=== PATIENT | female | born 2000 | race Caucasian/White ===

== ENCOUNTER 2023-05-04 11:15 | Emergency (ER) | payer BC, SELFPAY ==
[2023-05-04 11:20] VITALS: BP 124/89; PULSE 86; RESP 14; TEMP 36.4; O2SAT 99; BMI 33.8
--- NOTE | 2023-05-04 11:46 | EX.ED.DYSGE1 ---
HPI History of Present Illness Chief Complaint: Flank Pain Informant: patient Onset/Context/Timing Onset: Yesterday Narrative Narrative: Patient presents secondary to intermittent right flank pain with nausea and vomiting since last evening. She had lithotripsy for kidney stones on April 29. She states she took her stent out last night which she was told to do. She had intermittent pain to the right flank with nausea and vomiting since that time. She states that she took her antibiotic, ibuprofen, and Percocet at 8:00 this morning and currently does not have any pain. She had called Dr. Song this morning who was worried the patient may need the stent replaced and asked her to come in for evaluation. [facility] Medical History Kidney stone Home Medications ibuprofen 800 mg tablet (IBU) 800 mg PO Q8H 05/04/23 [History Last Taken Unknown] oxycodone-acetaminophen 5 mg-325 mg tablet (Percocet) 1 tab PO Q6H 05/04/23 [History Last Taken 05/04/23] oxycodone-acetaminophen 5 mg-325 mg tablet (Percocet) 1 tab PO Q8H PRN pain 3 days #10 tabs 05/04/23 [Rx Last Taken Unknown] phenazopyridine 95 mg tablet 95 mg PO TID PRN urinary 05/04/23 [History Last Taken Unknown] sulfamethoxazole 800 mg-trimethoprim 160 mg tablet (Bactrim DS) 1 tab PO BID #10 tabs 05/04/23 [Rx Last Taken Unknown] Allergy/AdvReac Type Severity Reaction Status Date / Time amoxicillin [From Augmentin] Allergy Mild Nausea Verified 05/04/23 11:17 clavulanic acid Allergy Mild Nausea Verified 05/04/23 11:17 [From Augmentin] Surgical History Hx of tonsillectomy Social History Smoking Status: Never smoker ROS ROS ED Constitutional Constitutional ED: Denies chills or fever(s) Eyes Eyes: Denies change in vision or discharge from eye(s) ENT ENT ED: Denies discharge from eye(s), rhinorrhea or sore throat Cardiovascular Cardiovascular: Denies chest pain or palpitations Respiratory/Chest Respiratory/Chest: Denies cough or dyspnea Gastrointestinal Gastrointestinal: Reports abdominal pain, nausea and vomiting; Denies diarrhea Genitourinary Genitourinary ED: Denies dysuria Musculoskeletal Musculoskeletal: Reports back pain; Denies extremity pain Integumentary Denies Abrasions or rash Neurologic Neurologic: Denies headache(s) or weakness Psychiatric Psychiatric: Denies anxiety or depression Allergic/Immunologic Allergic/Immunologic ED: Denies lip swelling or urticaria EXAM Physical Exam Const Vital Signs: 05/04/23 11:20 Temperature 97.6 F L Temperature Source Temporal Pulse Rate 86 Respiratory Rate 14 Blood Pressure 124/89 H Blood Pressure Mean 100 Pulse Ox 99 Oxygen Delivery Method Room Air Positive well nourished and well developed General Appearance ED: well developed HEENT Reports moist mucous membranes Eyes PERRL and EOMs intact bilaterally Chest Wall inspection of chest normal and palpation of chest normal Resp normal respiratory effort and clear to auscultation bilaterally Cardio regular rate and regular rhythm GI non-tender Auscultation: normoactive bowel sounds Palpation: soft Extremity normal to inspection Neuro oriented x3 and no sensory deficits noted Motor Exam: strength 5/5 throughout Psych mental status grossly normal Skin no rashes or lesions noted MDM MDM MDM Narrative Medical decision making narrative: Patient is not having pain at this time and has not given anything. BMP obtained to evaluate renal function. Urinalysis obtained to look for infection. KUB obtained to evaluate for any significant hydronephrosis. Lab Data Attestation: I reviewed the patient's lab results. Labs: Laboratory Results - last 24 hr 05/04/23 05/04/23 11:43 12:03 Sodium 138 Potassium 3.9 Chloride 107 Carbon Dioxide 26.0 Anion Gap 5 BUN 10 Creatinine 0.78 Estim Creat Clear Calc 89.48 Est GFR (MDRD) Af Amer 117 Est GFR (MDRD) Non-Af 97 BUN/Creatinine Ratio 12.7 Glucose 94 Calcium 8.9 Urine Color Yellow Urine Clarity Sl. Cloudy Urine pH 7.0 Ur Specific [place] 1.005 Urine Protein 15 H Urine Glucose (UA) Normal Urine Ketones Negative Urine Occult Blood 150 H Urine Nitrite Positive H Urine Bilirubin 1 H Urine Urobilinogen 1 H Ur Leukocyte Esterase 100 H Urine RBC 10-25 SEEN Urine WBC 10-25 SEEN Ur Squamous Epith Cells 0-5 SEEN Urine Bacteria 1+ Urine Mucus 0 SEEN Radiography Diagnostic Testing: Clinical Impression(s) from Imaging Studies KUB X-Ray 05/04/23 12:00 IMPRESSION: Large amount of fecal material is seen in the colon. Electronically Signed: Richard Raymond MD at 12:29 EDT , Treatment and Re-Evaluation :: Chemistry studies reveal normal renal function with a creatinine of 0.78. Urinalysis does reveal positive nitrites with 10-25 white cells and 1+ bacteria. KUB per my interpretation reveals increased stool burden with no bowel obstruction. No obvious significant hydronephrosis is noted. Radiology interpretation is reviewed. Patient has continued to have no further episodes of pain while in the emergency room. I did speak with Dr. Song and updated him on her current findings. We will send her urine for culture and place her on Bactrim. Patient is currently out of Percocet and will be given a short course of this to help with any additional pain. We did discuss the importance of taking her anti-inflammatories as this will often control a lot of the ureteral spasm. Discharge Plan Triage Chief Complaint: Flank Pain ED Provider: Daisha Canales Dx/Rx/DC Orders Clinical Impression: UTI (urinary tract infection), Flank pain Instructions: ED Flank Pain, Uncertain Cause, ED Cystitis Female Adult Prescriptions: New sulfamethoxazole-trimethoprim [Bactrim DS] 800-160 mg tablet 1 tab PO BID Qty: 10 0RF oxycodone-acetaminophen [Percocet] 5-325 mg tablet 1 tab PO Q8H PRN (Reason: pain) 3 Days Qty: 10 0RF No Action oxycodone-acetaminophen [Percocet] 5-325 mg tablet 1 tab PO Q6H ibuprofen [IBU] 800 mg tablet 800 mg PO Q8H phenazopyridine 95 mg tablet 95 mg PO TID PRN (Reason: urinary) Primary Care Provider: Care Physician,No Primary Referrals: Pranay Song MD [Med Staff - Active Staff] - Keep [place] appointment Care Physician,No Primary [Primary Care Provider] - Disposition Disposition: Home, Self Care
--- NOTE | 2023-05-04 12:00 | RAD_ITS ---
STUDY: X-RAY - ABDOMEN/PELVIS REASON FOR EXAM: Female, 22 years old. Flank pain -- recent ureteral stent removal TECHNIQUE: Single AP view of the abdomen / pelvis. COMPARISON: None. FINDINGS: Normal visualized lung bases. There is an abundance of fecal material throughout the colon. The visualized liver, spleen and kidneys are grossly normal in size and morphology. Normal soft tissue structures. Normal visualized osseous structures. RAD/Abdomen Single View IMPRESSION: Large amount of fecal material is seen in the colon. Electronically Signed: Richard Raymond MD at 12:29 EDT ,
[2023-05-04 12:04] LABS: Anion Gap 5 (5-15); BUN 10 mg/dL (7-18); BUN/Creat Ratio 12.7 RATIO (10-20); Calcium,Total 8.9 mg/dL (8.5-10.1); Chloride 107 mmol/L (98-107); Creatinine, Serum 0.78 mg/dL (0.55-1.02); EST Glomerular Filtration Rate 97 mL/min (>60); Est Glom Filt Rate - Afr Amer 117 mL/min (>60); Estimated Creatinine Clearance 89.48 ml/min; Glucose 94 mg/dL (74-106); Potassium 3.9 mmol/L (3.5-5.1); Sodium Level 138 mmol/L (136-145)
[2023-05-04 12:12] LABS: Mucous, Urine 0 SEEN /hpf (<or=2+)
[2023-05-04 12:23] LABS: Color, Urine Yellow (Yellow); Glucose, Dipstick Normal (Normal); Ketone-Dipstick Negative (Negative); Leukocyte Esterase-Dipstick 100 /ul (Negative); Nitrite-Dipstick Positive (Negative); Occult Blood-Urine 150 /ul (Negative); Protein-Dipstick 15 mg/dl (Negative); Specific Gravity, Urine 1.005 (1.002-1.030); Urine Bilirubin Dipstick 1 mg/dL (Negative); Urine Clarity Sl. Cloudy (Clear); Urine Urobilinogen 1 mg/dl (Normal)
[2023-05-04 12:30] LABS: Bacteria 1+ /hpf (None Seen); Squamous Epithelial Cells - UA 0-5 SEEN /hpf (5-10)
[2023-05-04 12:31] LABS: Red Blood Cells-Urine 10-25 SEEN /hpf (0-5); White Blood Cells 10-25 SEEN /hpf (0-5)
[2023-05-04] MEDS: Smz/Tmp Ds Tablet 1 TABLET PO (13:56)
== END 2023-05-04 14:02 | disposition home or self-care (01) ==
PROVIDERS: Emergency Provider Emergency Medicine; Visit Provider Emergency Medicine
DX: N39.0 Urinary tract infection, site not specified (principal); R10.9 Unspecified abdominal pain
CPT/HCPCS: 74018; 80048; 81001; 99283; A4216